=== PATIENT | male | born 1990 | race Caucasian/White ===

== ENCOUNTER 2024-08-12 14:45 | Emergency (ER) | payer OTHER, SELFPAY ==
[2024-08-12 15:08] VITALS: BP 158/82; PULSE 107; RESP 16; TEMP 36.9; O2SAT 97
--- NOTE | 2024-08-12 16:48 | ED.PSYCH ---
HPI - Psych General Chief Complaint: Psychiatric Symptoms <PAULO Guevara Last Filed: 08/12/24 16:58> Stated Complaint: Poss Bipolar, diff concentrating, No SI/HI <Dory Orellana PA-C - Last Filed: 08/12/24 16:58> Time Seen by Provider: 08/12/24 16:48 <PAULO Guevara Last Filed: 08/12/24 16:58> Focused HPI: Patient is a 33 y/o male who presents to the ED with c/o mental health concerns. Patient reports he thinks he has bipolar disorder. Feels carlos, increased energy levels, racing thoughts. Is currently in [employer] school and has been increasing stressed and anxious this week, having difficulty focusing, paranoid thoughts. Has been on cymbalta for the past 8 months, but states his psychiatrist no longer takes his insurance and he is trying to find resources for further psychiatric care. Denies any SI/HI. Reports previous suicide attempt in 2017, but states he would never do that ever again and so thankful he was not successful. GENERAL: Well-appearing, obese with BMI of 31.6, and in no acute distress. HEAD: Normocephalic, atraumatic. CHEST: Clear to auscultation. ?No respiratory distress. HEART: Regular rate and rhythm.? NEURO: ?Alert and oriented x3. PSYCHIATRIC: Manic affect, racing circumferential thoughts. Difficulty following conversation. Avoids eye contact. Patient screened in triage and initial orders placed.? ?Additional care and disposition to be based upon?diagnostic testing and treatment. <PAULO Guevara Last Filed: 08/12/24 16:58> Source: patient <PAULO Guevara Last Filed: 08/12/24 16:58> Mode of arrival: ambulatory <PAULO Guevara Last Filed: 08/12/24 16:58> Limitations: no limitations <PAULO Guevara Last Filed: 08/12/24 16:58> History of Present Illness HPI Narrative: I agree with the assessment and documentation by Dory Orellana PA-C. <Graciela Horner, POULTRY INSPECTOR - Last Filed: 08/12/24 21:38> Related Data Allergies/Adverse Reactions: Allergies Allergy/AdvReac Type Severity Reaction Status Date / Time lamitrogen Allergy Intermediate Hives Uncoded 08/12/24 14:48 <Dory Orellana PA-C - Last Filed: 08/12/24 16:58> Review of Systems Review of Systems: All systems reviewed & are unremarkable except as noted in HPI and below <Graciela Horner, KATTY - Last Filed: 08/12/24 21:38> Exam Narrative: GENERAL: Well appearing, well-nourished, non-toxic, in no acute distress. HEAD: Normocephalic, atraumatic. NECK: Supple. No adenopathy, no masses. RESPIRATORY: Airway patent, respirations nonlabored. Clear to auscultation bilaterally, no rales, rhonchi, wheezing. CARDIOVASCULAR: Regular rate and rhythm without murmurs, rubs, or gallops. Peripheral pulses 2+ and equal bilaterally. ABDOMINAL: Soft, nontender, nondistended, no hepatosplenomegaly. Normoactive BS. MUSCULOSKELETAL: Moves all extremities. Strength/ROM intact without gross deformities. NEURO: ?Alert and oriented x3. PSYCHIATRIC: Manic affect, racing circumferential thoughts. Difficulty following conversation. Avoids eye contact. <Graciela Horner, POULTRY INSPECTOR - Last Filed: 08/12/24 21:38> Course Vital Signs Vital signs: Vital Signs Temperature 36.9 C 08/12/24 15:08 Pulse Rate 107 H 08/12/24 15:08 Respiratory Rate 16 08/12/24 15:08 Blood Pressure 158/82 H 08/12/24 15:08 Pulse Oximetry 97 08/12/24 15:08 Oxygen Delivery Room Air 08/12/24 15:08 Temperature 36.7 C 08/12/24 21:29 Pulse Rate 95 08/12/24 21:29 Respiratory Rate 18 08/12/24 21:29 Blood Pressure 143/76 H 08/12/24 21:29 Pulse Oximetry 97 08/12/24 21:29 Oxygen Delivery Room Air 08/12/24 15:08 <Dory Orellana PA-C - Last Filed: 08/12/24 16:58> Vital Signs Temperature 36.9 C 08/12/24 15:08 Pulse Rate 107 H 08/12/24 15:08 Respiratory Rate 16 08/12/24 15:08 Blood Pressure 158/82 H 08/12/24 15:08 Pulse Oximetry 97 08/12/24 15:08 Oxygen Delivery Room Air 08/12/24 15:08 Temperature 36.7 C 08/12/24 21:29 Pulse Rate 95 08/12/24 21:29 Respiratory Rate 18 08/12/24 21:29 Blood Pressure 143/76 H 08/12/24 21:29 Pulse Oximetry 97 08/12/24 21:29 Oxygen Delivery Room Air 08/12/24 15:08 <Graciela Horner APRN - Last Filed: 08/12/24 21:38> MDM - Psych MDM Narrative Medical decision making narrative: MSE by PEÑA in triage. <Dory Orellana PA-C - Last Filed: 08/12/24 16:58> MSE by PEÑA in triage. Patient is a 33 y/o male who presents to the ED with c/o mental health concerns. Patient reports he thinks he has bipolar disorder. Feels carlos, increased energy levels, racing thoughts. Is currently in [employer] school and has been increasing stressed and anxious this week, having difficulty focusing, paranoid thoughts. Has been on Cymbalta for the past 8 months, but states his psychiatrist no longer takes his insurance and he is trying to find resources for further psychiatric care. Denies any SI/HI. Reports previous suicide attempt in 2017, but states he would never do that ever again and so thankful he was not successful. Labs Ordered: Complete BC, CMP, TSH, UA, COVID, UDS, ethanol, Tylenol level, Salicylate level Imaging Ordered: None necessary Medications Ordered: Lorazepam 0.5 mg p.o. Results: Pt's lab work results were all within normal limits. Diagnosis: psychiatric/mental health concern Consults: 2019- Intake arrived to assess pt. Patient Education/Shared MDM: 1844- Pt endorses decreased agitation following medication administration. 1914- Pt is medically clear for psychiatric evaluation. 2129- Pt is clear to be discharged home. He has made a safety plan with intake. Plan: Patient strongly advised to follow-up with his PCP as soon as possible and psychiatry, as planned with intake. He will be discharged home with a prescription for Hydroxyzine. Strict return precautions provided. Patient verbalized understanding is in agreement with plan. Vital signs stable at time of discharge. All questions answered. <Graciela Horner APRN - Last Filed: 08/12/24 21:38> Differential Diagnosis Differential diagnosis: Likely acute psychosis, bipolar disorder, depression, drug-induced psychotic disorder and acute anxiety <Graciela Horner APRN - Last Filed: 08/12/24 21:38> Lab Data Attestation: I reviewed the patient's lab results. <Graciela Horner APRN - Last Filed: 08/12/24 21:38> Result diagrams: 08/12/24 18:01 08/12/24 18:01 <Dory Orellana PA-C - Last Filed: 08/12/24 16:58> Labs: Lab Results 08/12/24 Range/Units 18:01 WBC 5.6 (4.5-10.0) K/mm3 RBC 5.17 (4.6-6.20) M/mm3 Hgb 14.5 (14.0-18.0) g/dL Hct 42.3 (42.0-52.0) % MCV 81.8 (80-100) fl MCH 28.0 (26-34) pg MCHC 34.3 (32-36) g/dl RDW 12.3 (11.5-14.5) % Plt Count 243 (150-375) k/mm3 MPV 9.9 (7.4-10.4) fl Immature Gran % (Auto) 0.2 (0-0.5) % Neut % (Auto) 44.9 L (45.5-73.1) % Lymph % (Auto) 46.0 H (18.3-44.2) % [place] % (Auto) 5.0 (2.6-8.5) % Eos % (Auto) 3.4 (0-4.4) % Baso % (Auto) 0.5 (0.2-1.2) % Lymph # (Auto) 2.58 (0.9-3.2) K/mm3 [place] # (Auto) 0.3 (0.1-0.6) K/mm3 Eos # (Auto) 0.2 (0-0.3) K/mm3 Baso # (Auto) 0.0 (0.0-0.1) K/mm3 Abs Immat Gran (auto) 0.01 (0.00-0.031) K/mm3 Absolute Neuts (auto) 2.5 (1.3-6.7) K/mm3 Absolute Nucleated RBC 0.000 (0.0-0.012) K/mm3 Nucleated RBC % 0.0 (0.0-0.2) % Sodium 140 (137-145) mmol/L Potassium 4.1 (3.4-5.0) mmol/L Chloride 100 (98-107) mmol/L Carbon Dioxide 30 (22-30) mmol/L Anion Gap 10 (4-12) mmol/L BUN 26 H (9-20) mg/dL Creatinine 0.75 (0.7-1.3) mg/dL Estim Creat Clear Calc 141 ml/min Estimated GFR > 60 (59 - ) Glucose 69 (65-110) mg/dL Calcium 9.1 (8.4-10.2) mg/dL Total Bilirubin 0.3 (0.2-1.3) mg/dL AST 36 (17-59) U/L ALT 27 (6-50) U/L Alkaline Phosphatase 61 (38-126) U/L Total Protein 8.0 (6.3-8.2) g/dL Albumin 4.8 (3.5-5.1) g/dL TSH 2.860 (0.465-4.680) uIU/mL Urine Color Yellow (Yellow) Urine Appearance Clear (Clear) Urine pH 6.0 (5.0-9.0) Ur Specific [place] 1.022 (1.001-1.035) Urine Protein Negative (Negative) mg/dL Urine Glucose (UA) Negative (Negative) mg/dL Urine Ketones Negative (Negative) mg/dL Ur Blood (Man) Negative (Negative) Urine Nitrate Negative (Negative) Urine Bilirubin Negative (Negative) Urine Urobilinogen 0.2 (<2.0) mg/dL Leukocyte Esterase Rfl Negative (Negative) SALONI/UL Salicylates < 1.0 L (2-20) mg/dL Urine Opiates Screen Negative (Negative) Urine Methadone Screen Negative (Negative) Acetaminophen < 10 L (10-30) ug/mL Ur Barbiturates Screen Negative (Negative) Ur Phencyclidine Scrn Negative (Negative) Ur Amphetamine Screen Negative (Negative) U Benzodiazepines Scrn Negative (Negative) Urine Cocaine Screen Negative (Negative) U Cannabinoids Screen Negative (Negative) Ethyl Alcohol < 10 (<10) mg/dL SARS-CoV-2 RNA (RT-PCR) Negative (Negative) <Dory Orellana PA-C - Last Filed: 08/12/24 16:58> Lab Results 08/12/24 Range/Units 18:01 WBC 5.6 (4.5-10.0) K/mm3 RBC 5.17 (4.6-6.20) M/mm3 Hgb 14.5 (14.0-18.0) g/dL Hct 42.3 (42.0-52.0) % MCV 81.8 (80-100) fl MCH 28.0 (26-34) pg MCHC 34.3 (32-36) g/dl RDW 12.3 (11.5-14.5) % Plt Count 243 (150-375) k/mm3 MPV 9.9 (7.4-10.4) fl Immature Gran % (Auto) 0.2 (0-0.5) % Neut % (Auto) 44.9 L (45.5-73.1) % Lymph % (Auto) 46.0 H (18.3-44.2) % [place] % (Auto) 5.0 (2.6-8.5) % Eos % (Auto) 3.4 (0-4.4) % Baso % (Auto) 0.5 (0.2-1.2) % Lymph # (Auto) 2.58 (0.9-3.2) K/mm3 [place] # (Auto) 0.3 (0.1-0.6) K/mm3 Eos # (Auto) 0.2 (0-0.3) K/mm3 Baso # (Auto) 0.0 (0.0-0.1) K/mm3 Abs Immat Gran (auto) 0.01 (0.00-0.031) K/mm3 Absolute Neuts (auto) 2.5 (1.3-6.7) K/mm3 Absolute Nucleated RBC 0.000 (0.0-0.012) K/mm3 Nucleated RBC % 0.0 (0.0-0.2) % Sodium 140 (137-145) mmol/L Potassium 4.1 (3.4-5.0) mmol/L Chloride 100 (98-107) mmol/L Carbon Dioxide 30 (22-30) mmol/L Anion Gap 10 (4-12) mmol/L BUN 26 H (9-20) mg/dL Creatinine 0.75 (0.7-1.3) mg/dL Estim Creat Clear Calc 141 ml/min Estimated GFR > 60 (59 - ) Glucose 69 (65-110) mg/dL Calcium 9.1 (8.4-10.2) mg/dL Total Bilirubin 0.3 (0.2-1.3) mg/dL AST 36 (17-59) U/L ALT 27 (6-50) U/L Alkaline Phosphatase 61 (38-126) U/L Total Protein 8.0 (6.3-8.2) g/dL Albumin 4.8 (3.5-5.1) g/dL TSH 2.860 (0.465-4.680) uIU/mL Urine Color Yellow (Yellow) Urine Appearance Clear (Clear) Urine pH 6.0 (5.0-9.0) Ur Specific [place] 1.022 (1.001-1.035) Urine Protein Negative (Negative) mg/dL Urine Glucose (UA) Negative (Negative) mg/dL Urine Ketones Negative (Negative) mg/dL Ur Blood (Man) Negative (Negative) Urine Nitrate Negative (Negative) Urine Bilirubin Negative (Negative) Urine Urobilinogen 0.2 (<2.0) mg/dL Leukocyte Esterase Rfl Negative (Negative) SALONI/UL Salicylates < 1.0 L (2-20) mg/dL Urine Opiates Screen Negative (Negative) Urine Methadone Screen Negative (Negative) Acetaminophen < 10 L (10-30) ug/mL Ur Barbiturates Screen Negative (Negative) Ur Phencyclidine Scrn Negative (Negative) Ur Amphetamine Screen Negative (Negative) U Benzodiazepines Scrn Negative (Negative) Urine Cocaine Screen Negative (Negative) U Cannabinoids Screen Negative (Negative) Ethyl Alcohol < 10 (<10) mg/dL SARS-CoV-2 RNA (RT-PCR) Negative (Negative) <Graciela Horner APRN - Last Filed: 08/12/24 21:38> Discharge Plan Discharge Clinical Impression: Psychiatric complaint, Psychiatric symptoms, Psychiatric disorder <Dory Orellana PA-C - Last Filed: 08/12/24 16:58> Patient Disposition: Home, Self-Care <Dory Orellana PA-C - Last Filed: 08/12/24 16:58> Condition: Stable <Dory Orellana PA-C - Last Filed: 08/12/24 16:58> Instructions: Antibiotic Form, Depression (ED), Generalized Anxiety Disorder (ED) <Dory Orellana PA-C - Last Filed: 08/12/24 16:58> Additional Instructions: Please return to the ER with any worsening symptoms. Follow-up with primary care provider as soon as possible. Follow through with psychiatric care, as planned. Take all medications as prescribed, including regularly scheduled medications. <Dory Orellana PA-C - Last Filed: 08/12/24 16:58> Patient Language: Tunisian <Dory Orellana PA-C - Last Filed: 08/12/24 16:58> Prescriptions: New hydroxyzine HCl 25 mg tablet 25 mg PO TID PRN (Reason: anxiety) Qty: 20 0RF <Dory Orellana PA-C - Last Filed: 08/12/24 16:58> Follow-up/Referrals: PHYSICIAN,PUPPET DEVELOPER [Primary Care Provider] - <Dory Orellana PA-C - Last Filed: 08/12/24 16:58> Stand Alone Forms: Work/School Release IP <Dory Orellana PA-C - Last Filed: 08/12/24 16:58> Time of Disposition: 21:38 <Dory Orellana PA-C - Last Filed: 08/12/24 16:58> 21:38 <Graciela Horner APRN - Last Filed: 08/12/24 21:38>
[2024-08-12] MEDS: LORazepam (*CRX) 0.5 MG TABLET PO (17:50)
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
--- OUTSIDE RECORDS SUMMARY | 2024-08-12 18:04 | XMS_ITS | Continuity of Care Document ---
Author Organization [facility] Address [address] [place] [address] Phone Care Team Providers Care Manager Garden Name Role Phone IBH, PROVIDER Unavailable Unavailable Allergies, Adverse Reactions, Alerts Substance Reaction Status Criticality lamotrigine Active No Information Medications Medication Instructions Dosage Effective Dates (start - stop) Status Comments buprenorphine 2 mg-naloxone 0.[address] 2 tablet by sublingual route every day allow to dissolve slowly in mouth without chewing or swallowing 2.00 tablet - Active Procedures Procedure Date Oral Hygiene Instructions Topical Application Of Fluoride Varnish Prophylaxis-Adult Periodic Oral Evaluation-Established Pat ient Bitewings-Four Radiographic Images Intraoral-Periapical First Radiographic Image Intraoral-Periapical Each Additional Rad iographic OFFICE/OUTPATIENT VISIT, EST OFFICE/OUTPATIENT VISIT, EST Resin-Based Composite-One Surface, Poste rior Treatment completion excluding elective work Prophylaxis-Adult Topical Application Of Fluoride Varnish Oral Hygiene Instructions Bitewings-Four Radiographic Images Intraoral-Periapical First Radiographic Image Intraoral-Periapical Each Additional Rad iographic Periodic Oral Evaluation-Established Pat ient Nutritional Counseling For Control Of De ntal Disea Caries risk assesment and documentation, with a fi Motivational Interview Resin-Based Composite-Two Surfaces, Ante rior Prophylaxis-Adult Topical Application Of Fluoride Varnish Intraoral-Complete Series Of Radiographi c Images Comprehensive Oral Evaluation-New Or Est ablished P Caries risk assesment and documentation, with a fi Tobacco Counseling For The Control And P revention Motivational Interview OFFICE/OUTPATIENT VISIT, EST DRUG SCREEN POC Lab OFFICE/OUTPATIENT VISIT, NEW Advance Directives Directive Yes / No Effective Date File Name No Information Encounters Encounter Description Practice Location Reason(s) For Visit Diagnoses Date Provider Providers Copied on Encounter [facility], [address] [place] [address], [address] [place] [address] tel:[phone] [facility]LY [facility], [facility] Medical No Information 1 [facility] PROVIDER. [address] [place], [place], [facility]. tel:[phone] [facility], [address] [place] [address], [facility], tel:[phone] [facility], [facility] Dental Risk for dental caries, highChronic gingivitis, plaque induced 1 ADRIAN GARNETT. [address] [place] [address], [id number], . tel:[phone] Referring Provider: MARIOLA CAMPBELL, [address] [place] [address], [id number] . tel:[phone] [facility], [address] [place] [address], [id number], tel:[phone] [facility], [facility] Dental Encounter for dental exam and cleaning w abnormal findingsDental caries on pit and fissure surfc penetrat into dentinDental caries on smooth surface penetrating into dentin 1 ADRIAN GARNETT. [address] [place] [address], [id number], . tel:[phone] Referring Provider: MARIOLA CAMPBELL [address] [place] [address], [id number] . tel:[phone] OFFICE/OUTPA TIENT VISIT, [facility], [address] [place], [place], [facility], tel:[phone] [facility], [facility] Medical lab review (chief complaint) Vitamin D deficiency, unspecifiedDisor phuong of thyroid, unspecifiedChron ic hep CChlamydial infection Jul- EVENS SCHILLING. [address] [place], [place], [facility], . tel:[phone] OFFICE/OUTPA TIENT VISIT, [facility], [address] [place], [place], [facility], tel:[phone] [facility], [facility] Medical Sleep apnea (chief complaint) Sleep apneaOther halfway (current) drug therapyEncounter for STD screeningEncount er for screening for other viral diseases EVENS SCHILLING. [address] [place], [place], [address] [place] [address]. tel:[phone] [facility], [address] [place] [address], [facility], tel:[phone] [facility], [facility] Dental Dental caries on pit and fissure surfc penetrat into dentinOther dental procedure status 0 ADRIAN GARNETT. [address] [place] [address], [id number], . tel:[phone] Referring Provider: MARIOLA CAMPBELL, [address] [place] [address], [id number] . tel:[phone] [facility], [address] [place], [place], [facility], tel:[phone] [facility], [facility] Dental Deposits [accretions] on teethChronic gingivitis, plaque inducedDental caries, unspecifiedRisk for dental caries, high September- 0 EMIL DILLARD. [address] [place], [place], [facility], . tel:[phone] Referring Provider: GILMA STEIN, [address] [place], [place], [facility]. tel:[phone] [facility], [address] [place], [place], [facility], tel:[phone] [facility], [facility] Dental Encounter for dental exam and cleaning w abnormal findingsDental caries on pit and fissure surfc penetrat into dentin Mar-0 9 No Information [facility], [address] [place], [place], [facility], tel:[phone] [facility], [facility] Dental Dental caries on smooth surface penetrating into dentin Feb-0 9 EMIL DILLARD. [address] [place], [place], [facility], . tel:[phone] Referring Provider: GILMA STEIN, [address] [place], [place], [facility]. tel:[phone] [facility], [address] [place], [place], [facility], tel:[phone] [facility], [facility] Dental Acute gingivitis, plaque inducedRisk for dental caries, high 2 8 No Information [facility], [address] [place], [place], [facility], tel:[phone] [facility], [facility] Dental Encounter for dental exam and cleaning w abnormal findingsDental caries on smooth surface penetrating into dentinRisk for dental caries, high Mar-0 8 EMIL DILLARD. [address] [place], [place], [facility], . tel:[phone] Referring Provider: GILMA STEIN, [address] [place], [place], [facility]. tel:[phone] OFFICE/OUTPA TIENT VISIT, [facility], [address] [place], [place], [facility], tel:[phone] [facility], [facility] Medical Est care with Yevgeniy Cho (chief complaint) Major depression 8 LIBRADO BERG. [address] [place], [place], [facility], . tel:[phone] Referring Provider: YEVGENIY CHO, [address] [place], [place], [facility]. tel:[phone] OFFICE/OUTPA TIENT VISIT, [facility], [address], [place], [address], [place] tel:[phone] [facility], [facility] Medical Opiate addiction (chief complaint) Body mass index (BMI) 31.0-31.9, adultBipolar affective disorder, currently manic, moderateUncompli cated opioid dependenceMetham phetamine use Sep-0 5201 8 No Information Family History Family Member Type Diagnosis Age At Onset Maternal aunt Problem (finding) Mental illness Problem (finding) Family history of alcoh olism Payers Payer name Insurance type Covered green party ID Authoriza tikennedy(s) D[employer]AL [employer] 21 And Over CI [id number] Dental 18 [employer] [id number] Social History Type Description Quantity Date Captured Comments Alcohol Use Details Unknown Caffeine Use Details Unknown Tobacco Use Status Smoking Status No Information Sex Male Chief Complaint And Reason For Visit No Information Reason For Referral Reason For Referral No Information Plan Of Treatment Date Type Action Status Goal Dietary manageme nt education, guidance, and counseling completed Referral Ordered: Referrals: Sleep Study. Evaluate and treat ordered Referral Ordered: Referrals: _[facility], [facility]_PSYCH. Evaluate and treat Appointment date/timeframe: 04/14/2018 ordered Future Order: Lab Order Hep C Vi ral RNA, Quant Real-Time PCR with Reflex ([id number]), Sent on: Sent Future Order: Lab Order TSH W/RE FLEX TO FREE T4 ([id number]), Sent on: Sent Future Order: Lab Order CBC (H/H , RBC, INDICES, WBC, PLT) ([id number]), Sent on: Sent Future Order: Lab Order COMPREHE NSIVE METABOLIC PANEL ([id number]), Sent on: Sent Future Order: Lab Order Drug Abu se Panel 10-50 plus Ethanol, with Conf, Urine ([id number]), Sent on: Sent Future Order: Lab Order URINALYS IS, COMPLETE W/REFLEX TO CULTURE ([id number]), Sent on: Sent Future Order: Lab Order HIV 1/2 ANTIGEN/ANTIBODY, FOURTH GEN W/ REFLEX ([id number]), Sent on: Sent Future Order: Lab Order HEPATITI S PANEL, ACUTE W/REFLEX ([id number]), Sent on: Sent History Of Present Illness Encounter Date Complaint History Of Prese nt Illness lab review (comments) Telephone encounter today due to COVID 19 stay at home precautions and social distancing guidelines. lab review Positive for Chl amydia- patient was treated at the [facility] ER about 9 daysDenies any symptomsslightly low Vitamin D- 23 normal 30-100TSH elevated-denies any dysphagia, constipation or diarrheaDenies any family history of thyroid disordereddenies weight loss or gaindenies any hot or cold intolerance Sleep apnea (comments) Telephone encounter today due to COVID 19 stay at home precautions and social distancing guidelines. Sleep apnea The symptoms are moderate and unchanged. These complaints are continuous. Relevant history: takes 12 hours to fall asleep per night and morbid obesity. The apnea is worsened by significant weight gain and stress but not alcohol use, heartburn, malocclusion or sleeping supine. Denies relieving factors. The patient is also experiencing0 depression, nasal congestion, personality changes, poor or worsening memory, snoring (reported by pt.), snoring (reported by others), sore throat upon awakening, weight gain and witnessed apnea or irregular nighttime breathing. The patient denies awakening with choking, awakening with shortness of breath, difficulty concentrating, difficulty initiating sleep, difficulty maintaining sleep, headache, heartburn, insomnia or irritability. Est care with Yevgeniy Cho 27yo male for initial visit. States he would like help with his aggressive, angry bx. Endorses depression and anxiety. Sleep is good--no problems. Initially states no AH, but then states he has them occasionally when arguing to get BZD prescribed. Pt hasn't worked in two years. BS in chemistry and worked as a laborer plumbing. Lives in his car. Mother in [place] has a restraining order against him. Dad in [place] has cut off all contact as has the rest of his family. Pt states two 5150's for two suicide attempts. One landed him in ICU--Benadryl OD. Other was another OD. ?? drug.Does not want rehab--declines all info/referrals today.Lives in his car/homelessStates last stimulant use yesterday.Pt does endorse occasional IVDA--heroin and stimulants. States off heroin for a week now.CURES shows now rx'd controlled substances for the past year. Drug test done 01/28/2018 positive for meth, dextrometh, THC, morphine, oxycodone.Pt states he has been on Zoloft 100mg daily and Abilify 20mg daily for a long time. Opiate addiction Patient with a history of opiate addiction that is here today requesting treatment for opiate addiction. Patients initial screening questions were reviewed with the patient, and there was contraindications were found for Suboxone treatment. Risk and benefits of treatment for opiate addiction were d/w patient, and all questions were answered. patient was tested positive for street drugs today and as such will not be able to get stated on Suboxone treatment Functional Status Date Functional Assessmen t No Information Instructions Date Instruction Additional Infor chloé Exercise: Many studi es show that regular physical activity is a great way to stay fit and combat depression and anxiety. Exercises such as brisk walking and moderate strength training can reduce stress, depression and anxiety, and offer a healthy distraction from negative thoughts. Relaxation: Give yourself time for relaxation. Use relaxation strategies regularly. You can also relax by just making time to do things you enjoy like going to a movie or a ballgame or working on your hobbies. on't drink alcohol. Drinking alcohol can neutralize the beneficial effects of the medications and interact with some medications to cause liver damage, seizures, unpredictable shifts in mood, and other health problems. (Avoid other substances, as well, including medications that your doctor has not prescribed for you.) Related to Bipolar affective disorder, currently manic, moderate --After discussion o f alternatives, cont Zoloft for depression--cont Abilify as adjunct for depression and low grade psyhosis--declined to provide BZD--STOP USING DRUGS. METH AND HEROIN!!!!! Pt's grim outlook discussed at length if he doesn't stop using: psychiatric hospital, shelter or are his three options. He voices understanding reluctantly.--pt declines rehab and AOD referrals today--get labs drawn and f/u with PCPRisk vs benefit profile of all medications discussed thoroughly and all questions answered. Pt consents to all med changes.Pt given keno writer / runner's contact information and will call with questions or problems. To ER or dial 911 with any acute changes. Related to Major depression Dietary management e ducation, guidance, and counseling Related to Body mass index (BMI) 31.0-31.9, adult Assessments Type Assessment Date No Information Patient Care Teams Name Effective Dates (start - stop) Status Members No Information
[2024-08-12 18:09] LABS: Basophils Percent Auto 0.5 % (0.2-1.2); Eosinophils Absolute Auto 0.2 K/mm3 (0-0.3); Eosinophils Percent Auto 3.4 % (0-4.4); Hematocrit 42.3 % (42.0-52.0); Hemoglobin 14.5 g/dL (14.0-18.0); Immature Granulocyte Absolute 0.01 K/mm3 (0.00-0.031); Immature Granulocyte Percent A 0.2 % (0-0.5); Lymphocytes Absolute Auto 2.58 K/mm3 (0.9-3.2); Mean Corpuscular HGB Conc 34.3 g/dl (32-36); Mean Corpuscular Volume 81.8 fl (80-100); Mean Platelet Volume 9.9 fl (7.4-10.4); Monocytes Absolute Auto 0.3 K/mm3 (0.1-0.6); Neutrophils Absolute Auto 2.5 K/mm3 (1.3-6.7); Neutrophils Percent Auto 44.9 % (45.5-73.1); Platelet Count Result 243 k/mm3 (150-375); Red Blood Count 5.17 M/mm3 (4.6-6.20); Red Cell Distribution Width 12.3 % (11.5-14.5); White Blood Count 5.6 K/mm3 (4.5-10.0)
[2024-08-12 18:11] LABS: Add Urine Microscopic? NO; Appearance Urine Clear (Clear); Bilirubin Urine Negative (Negative); Blood Urine Negative (Negative); Color Urine Yellow (Yellow); Glucose Urine UA Negative (Negative); Ketones Urine Negative (Negative); Leukocyte Esterase Ur Negative LEU/UL (Negative); Nitrate Urine Negative (Negative); Protein Urine Negative (Negative); Specific Grav Ur 1.022 (1.001-1.035); Urobilinogen Urine 0.2 mg/dL (<2.0)
[2024-08-12 18:20] LABS: Alanine Aminotransferase 27 U/L (6-50); Albumin Level 4.8 g/dL (3.5-5.1); Alkaline Phosphatase 61 U/L (38-126); Anion Gap 10 mmol/L (4-12); Aspartate Amino Transferase 36 U/L (17-59); Bilirubin,Total 0.3 mg/dL (0.2-1.3); Blood Urea Nitrogen 26 mg/dL (9-20); Calcium 9.1 mg/dL (8.4-10.2); Carbon Dioxide 30 mmol/L (22-30); Chloride 100 mmol/L (98-107); Estimated CRCL calculation 141 ml/min; Estimated Glomerular Filt Rate > 60; Glucose 69 mg/dL (65-110); Potassium 4.1 mmol/L (3.4-5.0); Sodium 140 mmol/L (137-145)
[2024-08-12 18:30] LABS: Amphetamine Screen Urine Negative (Negative); Barbiturate Screen Urine Negative (Negative); Benzodiazepines Screen Urine Negative (Negative); Cannabinoid Screen Urine Negative (Negative); Cocaine Screen Urine Negative (Negative); Methadone Screen Urine Negative (Negative); Opiate Screen Urine Negative (Negative); Phencyclidine Screen Urine Negative (Negative)
[2024-08-12 18:32] LABS: Acetaminophen < 10 ug/mL (10-30); Ethanol < 10 mg/dL (<10); Salicylate < 1.0 mg/dL (2-20)
[2024-08-12 18:46] LABS: SARS-CoV-2 RNA PCR Negative (Negative)
--- NOTE | 2024-08-12 20:33 | PC.NURSE ---
2030-CHESTNUT HERE TO SPEAK WITH PATIENT. PATIENT AND COUNSELORS MOVED TO FAMILY ROOM FOR PATIENT PRIVACY WHILE SPEAKING TO COUNSELORS.
[2024-08-12 21:29] VITALS: BP 143/76; PULSE 95; RESP 18; TEMP 36.7; O2SAT 97
== END 2024-08-12 21:45 | disposition home or self-care (01) ==
PROVIDERS: Physician Assistant; Emergency Provider Registered Nurse
DX: F99 Mental disorder, not otherwise specified (principal); Z11.52 Encounter for screening for COVID-19
CPT/HCPCS: 36415; 80053; 80143; 80179; 80307; 81003; 82077; 84443; 85025; 87635; 99284; A9270